=== PATIENT | female | born 1970 | race Caucasian/White ===

== ENCOUNTER 2017-02-14 01:15 | Emergency (ER) | payer OTHER ==
--- NOTE | 2017-02-14 01:48 | PDOC ---
History of Present Illness - General Chief Complaint: Pain Stated Complaint: CHEST PAIN/BLOOD PRESSURE PROBLEM Time Seen by Provider: 02/14/17 01:30 History Source: Patient, Significant Other - History of Present Illness Initial Comments: 02/14/17 01:43 46 year old female c/o chest pain and left arm pain since 11 pm with mild nausea. + pleurisy. patient took 2 baby aspirin and 2.5 mg amlodipine. denies recent travel, OCP use, History of hyperlipidemia not on meds. Presenting Symptoms: Chest Pain Timing/Duration: reports: constant Severity/Quality: reports: moderate Location: reports: substernal, back. denies: central, epigastric, shoulder, abdomen, other Chest Pain Radiation: reports: arms (left arm) Activities at Onset: reports: none Prior Chest Pain/Cardiac Workup: reports: No prior chest pain, No prior cardiac workup Modifying Factors: worse with: antacids, breathing, coughing, defecating, eating , exercise, lying down, morphine, movement, nitroglycerin, oxygen, palpation, rest, other Aspirin Received prior to arrival (Core Measure): Yes: 81 mg x 2 Associated Symptoms: Yes: Nausea. No: Denies symptoms, Abdominal pain, Back Pain, Cough, Chest Pain/pressure, Diaphoresis, Dizziness, Edema, Fatigue, Fever/ chills, Headache, Heartburn, Loss of Appetite, Palpitations, Rash, Shortness of Breath, Swelling/lump in chest, Syncope, Vomiting, Weakness Past History - Past Medical History Allergies/Adverse Reactions: Allergies Allergy/AdvReac Type Severity Reaction Status Date / Time tetracycline [Tetracycline] Allergy Verified 02/14/17 01:34 Home Medications: Ambulatory Orders NK [No Known Home Medication] 02/14/17 Hypercholesterolemia: Yes Other medical history: Pt denies - Surgical History Appendectomy: Yes - Suicide/Smoking/Psychosocial Hx Smoking Status: No Smoking History: Never smoked Have you smoked in the past 12 months: No Number of Cigarettes Smoked Daily: 0 Information on smoking cessation initiated: No Hx Alcohol Use: No Drug/Substance Use Hx: No Substance Use Type: None Review of Systems - Review of Systems Able to Perform ROS?: Yes Is the patient limited Thai proficient: No Constitutional: No: Symptoms Reported, See HPI, Chills, Diaphoresis, Fever, Loss of Appetite, Malaise, Night Sweats, Weakness, Weight Stable, Unintentional Wgt. Loss, Unexplained wgt Loss, Other Cardiac (ROS): Yes: Chest Pain, Other (pain radiating to back and left arm.) ABD/GI: Yes: Nausea. No: Symptoms Reported, See HPI, Abdominal Distended, Abd. Pain w/ defecation, Blood Streaked Bowels, Constipated, Diarrhea, Difficulty Swallowing, Poor Appetite, Poor Fluid Intake, Rectal Bleeding, Vomiting, Indigestion, Abdominal cramping, Tarry Stools, Other *Physical Exam - Vital Signs Last Vital Signs Temp Pulse Resp BP Pulse Ox 97.5 F L 68 18 149/90 99 02/14/17 01:35 02/14/17 04:15 02/14/17 04:15 02/14/17 04:15 02/14/17 04:15 - Physical Exam General Appearance: Yes: Appropriately Dressed Respiratory/Chest: positive: Lungs Clear, Normal Breath Sounds Cardiovascular: positive: Regular Rhythm, Regular Rate, S1, S2. negative: Edema , JVD, Murmur, Bradycardia, Tachycardia, Diastolic Murmur, Systolic Murmur, Gallop/S3, Gallop/S4, Irregularly Irregular, Irregular, Other Gastrointestinal/Abdominal: positive: Normal Bowel Sounds, Soft. negative: Tender Musculoskeletal: positive: Normal Inspection Extremity: positive: Normal Capillary Refill, Normal Inspection, Normal Range of Motion Integumentary: positive: Normal Color, Dry, Warm Neurologic: positive: Fully Oriented, Alert, Normal Mood/Affect Heart Score/ECG Review - History History: Slightly suspicious - Electrocardiogram EKG: Normal - Age Age: 45-65 - Risk Factors Risk Factors Heart Score: Yes Hx Hypercholesterolemia Based on the list above the patient has:: 1-2 risk factors - Troponin Troponin: </= normal limit - Score Heart Score - Total: 2 #2 ECG reviewed & interpreted by me at: 06:19 General ECG Interpretation: Sinus Rhythm Compared to previous ECG there are: No significant change 02/14/17 06:19 60bpm - ECG Intrepretation Rhythm: Regular Rhythm Comment:: 02/14/17 04:51 78: NSR ED Treatment Course - LABORATORY CBC & Chemistry Diagram: 02/14/17 01:52 02/14/17 01:52 - ADDITIONAL ORDERS Additional order review: Laboratory Results 02/14/17 02/14/17 02/14/17 02:00 01:52 01:52 PT with INR 11.10 INR 1.01 D-Dimer < 200 Sodium 142 Potassium 4.0 Chloride 106 Carbon Dioxide 25 Anion Gap 11 BUN 12 Creatinine 0.7 Creat Clearance w eGFR > 60 Random Glucose 126 H Calcium 8.8 Magnesium 2.2 Total Bilirubin 0.2 AST 32 ALT 51 Alkaline Phosphatase 98 Creatine Kinase 167 Creatine Kinase Index 0.7 CK-MB (CK-2) 1.222 Troponin I < 0.02 Total Protein 7.4 Albumin 3.8 Urine Color Colorless Urine Appearance Clear Urine pH 7.0 Urine Protein Negative Urine Glucose (UA) Negative Urine Ketones Negative Urine Blood Negative Urine Nitrite Negative Urine Bilirubin Negative Urine Urobilinogen Negative Urine RBC 1 Urine WBC 7 Ur Epithelial Cells Rare Urine Bacteria Rare Urine HCG, Qual Negative 02/14/17 01:52 RBC 4.50 MCV 86.2 MCHC 33.9 RDW 14.0 MPV 8.8 Neutrophils % 43.2 Lymphocytes % 43.7 H Monocytes % 7.5 Eosinophils % 4.6 H Basophils % 1.0 - RADIOLOGY Radiology Studies Ordered: Category Date Time Status CHEST PA & LAT [RAD] Stat Radiology 02/14/17 01:53 Taken Chest X-Ray Result: No Infiltrates (official read pending) Progress Note - Progress Note Progress Note: A: chest pain; hypertension P: cbc cmp cardiac enzymes x2 d- dimer ua urine . EKG Medical Decision Making - Medical Decision Making 02/14/17 06:15 patient reports feeling better. b/p improving. advised to follow up with pmd for b/p management. cardiac enzyme # 2 pending. if normal patient to be discharged for further management of care. 02/14/17 06:20 *DC/Admit/Observation/Transfer Diagnosis at time of Disposition: Chest pain in adult - Discharge Dispostion Disposition: HOME - Referrals Referrals: Sanaz Keith [Primary Care Provider] - - Patient Instructions Printed Discharge Instructions: [facility] Diet Additional Instructions: follow up with your doctor as soon as possible. monitor your b/p daily. follow up with your doctor as soon as possible. - Post Discharge Activity Forms/Work/School Notes: Back to Work
[2017-02-14 01:54] VITALS: TEMP 97.5; BMI 30.9
[2017-02-14 02:01] LABS: EOSINOPHIL 4.6 % (0-4.5); MCH 29.2 pg (25.7-33.7); MCHC 33.9 g/dl (32.0-36.0); MEAN CELL VOLUME 86.2 fl (80-96); MEAN PLT VOLUME 8.8 fl (7.5-11.1); NEUTROPHILS 43.2 % (42.8-82.8); PLATELET COUNT 207 K/MM3 (134-434); WHITE BLOOD COUNT 7.3 K/mm3 (4.0-10.0)
[2017-02-14 02:13] LABS: URINE APPEARANCE CLEAR; URINE BILIRUBIN NEGATIVE (NEGATIVE); URINE BLOOD NEGATIVE (NEGATIVE); URINE COLOR COLORLESS; URINE GLUCOSE (UA) NEGATIVE (NEGATIVE); URINE KETONE NEGATIVE (NEGATIVE); URINE NITRITE NEGATIVE (NEGATIVE); URINE PROTEIN NEGATIVE (NEGATIVE); URINE UROBILINOGEN NEGATIVE mg/dL (0.2-1.0)
[2017-02-14 02:17] LABS: URINE LEUK ESTERASE 1+ (NEGATIVE)
[2017-02-14 02:18] LABS: URINE BACTERIA RARE /hpf (NONE SEEN); URINE RBC 1 /hpf (0-3); URINE WBC 7 /hpf (3-5)
[2017-02-14 02:24] LABS: ALBUMIN 3.8 g/dl (3.4-5.0); ANION GAP 11 (8-16); BILIRUBIN,TOTAL 0.2 mg/dL (0.2-1.0); CALCIUM 8.8 mg/dL (8.5-10.1); CO2 25 mmol/L (21-32); CREATININE 0.7 mg/dL (0.55-1.02); GLUCOSE,RANDOM 126 mg/dL (74-106); MAGNESIUM 2.2 mg/dL (1.8-2.4); SGOT/AST 32 U/L (15-37); SGPT/ALT 51 U/L (12-78); TOT PROT 7.4 g/dl (6.4-8.2)
[2017-02-14 02:27] LABS: ALK PHOS 98 U/L (45-117); CPK 167 IU/L (26-192); TROPONIN I < 0.02 ng/ml (0.00-0.05)
[2017-02-14 02:28] LABS: INR 1.01 (0.82-1.09)
--- NOTE | 2017-02-14 02:56 | PDOC ---
*Physical Exam - Vital Signs Last Vital Signs Temp Pulse Resp BP Pulse Ox 97.5 F L 75 20 166/107 100 02/14/17 01:35 02/14/17 01:35 02/14/17 01:35 02/14/17 01:35 02/14/17 01:35 ED Treatment Course - LABORATORY CBC & Chemistry Diagram: 02/14/17 01:52 02/14/17 01:52 - ADDITIONAL ORDERS Additional order review: Laboratory Results 02/14/17 02/14/17 02/14/17 02:00 01:52 01:52 PT with INR 11.10 INR 1.01 Sodium 142 Potassium 4.0 Chloride 106 Carbon Dioxide 25 Anion Gap 11 BUN 12 Creatinine 0.7 Creat Clearance w eGFR > 60 Random Glucose 126 H Calcium 8.8 Magnesium 2.2 Total Bilirubin 0.2 AST 32 ALT 51 Alkaline Phosphatase 98 Creatine Kinase 167 Troponin I < 0.02 Total Protein 7.4 Albumin 3.8 Urine Color Colorless Urine Appearance Clear Urine pH 7.0 Urine Protein Negative Urine Glucose (UA) Negative Urine Ketones Negative Urine Blood Negative Urine Nitrite Negative Urine Bilirubin Negative Urine Urobilinogen Negative Urine RBC 1 Urine WBC 7 Ur Epithelial Cells Rare Urine Bacteria Rare Urine HCG, Qual Negative 02/14/17 01:52 RBC 4.50 MCV 86.2 MCHC 33.9 RDW 14.0 MPV 8.8 Neutrophils % 43.2 Lymphocytes % 43.7 H Monocytes % 7.5 Eosinophils % 4.6 H Basophils % 1.0 Medical Decision Making - Medical Decision Making 02/14/17 02:56 agree with care from [facility] *DC/Admit/Observation/Transfer Diagnosis at time of Disposition: Chest pain in adult - Referrals Referrals: Sanaz Keith [Primary Care Provider] - - Patient Instructions - Post Discharge Activity
[2017-02-14 03:02] LABS: D-DIMER < 200 ng/ml (<200-235)
[2017-02-14 04:16] VITALS: BP 149/90; PULSE 68
[2017-02-14 06:34] LABS: CPK 167 IU/L (26-192); TROPONIN I < 0.02 ng/ml (0.00-0.05)
--- NOTE | 2017-02-14 10:24 | EKG ---
Test Reason : Blood Pressure : / mmHG Vent. Rate : 078 BPM Atrial Rate : 078 BPM P-R Int : 164 ms QRS Dur : 078 ms QT Int : 382 ms P-R-T Axes : 014 051 032 degrees QTc Int : 435 ms NORMAL SINUS RHYTHM NORMAL ECG WHEN COMPARED WITH ECG OF 13-AUG-2013 00:27, NO SIGNIFICANT CHANGE WAS FOUND Confirmed by EDY BARRY MD ([id number]) on 02/14/2017 10:23:50 AM Referred By: Confirmed By:EDY BARRY MD
--- NOTE | 2017-02-14 13:03 | EKG ---
Test Reason : Blood Pressure : / mmHG Vent. Rate : 060 BPM Atrial Rate : 060 BPM P-R Int : 180 ms QRS Dur : 078 ms QT Int : 456 ms P-R-T Axes : 018 053 048 degrees QTc Int : 456 ms NORMAL SINUS RHYTHM WITH SINUS ARRHYTHMIA NORMAL ECG WHEN COMPARED WITH ECG OF 14-FEB-2017 01:25, NO SIGNIFICANT CHANGE WAS FOUND Confirmed by EDY BARRY MD ([id number]) on 02/14/2017 1:03:40 PM Referred By: Confirmed By:EDY BARRY MD
== END 2017-02-14 07:09 | disposition home or self-care (01) ==
LOC: JER 01:15
DX: R07.9 Chest pain, unspecified (principal); E78.00 Pure hypercholesterolemia, unspecified
CPT/HCPCS: 36415; 71020-TC; 80053; 81003; 81015; 82553; 83735; 84484; 84703; 85025; 85379; 85610; 93005; 93010; 99283-25

== ENCOUNTER 2021-04-10 17:38 | Emergency (ER) | payer SELFPAY ==
[2021-04-10 17:46] VITALS: TEMP 97; BMI 33.5
[2021-04-10 18:52] VITALS: BP 149/97; PULSE 67
[2021-04-10 18:54] LABS: BASO % 0.8 % (0-2.0); EOS % 0.7 % (0-4.5); EPI CELLS 32 /uL (0-25.1); HEMATOCRIT 40.6 % (32.4-45.2); HEMOGLOBIN 13.8 GM/dL (10.7-15.3); HYALINE CASTS 0 /uL (0-3.1); LYMPH % 27.9 % (8-40); MCH 28.9 pg (25.7-33.7); MCHC 33.9 g/dl (32.0-36.0); MEAN CELL VOLUME 85.4 fl (80-96); MEAN PLT VOLUME 8.5 fl (7.5-11.1); MONO % 7.3 % (3.8-10.2); NEUT % 63.3 % (42.8-82.8); PH,URINE 7.5 (5.0-8.0); PLATELET COUNT 235 10^3/uL (134-434); RBC 4.75 M/mm3 (3.60-5.2); RDW 14.4 % (11.6-15.6); URINE APPEARANCE CLEAR; URINE BACTERIA 32 /uL (0-1359); URINE BILIRUBIN NEGATIVE (NEGATIVE); URINE COLOR YELLOW; URINE GLUCOSE (UA) NEGATIVE (NEGATIVE); URINE KETONE NEGATIVE (NEGATIVE); URINE LEUK ESTERASE 2+ (NEGATIVE); URINE NITRITE NEGATIVE (NEGATIVE); URINE PROTEIN NEGATIVE (NEGATIVE); URINE RBC 4 /uL (0-23.9); URINE UROBILINOGEN 0.2 mg/dL (0.2-1.0); URINE WBC 36 /uL (0-25.8); WHITE BLOOD COUNT 7.4 K/mm3 (4.0-10.0)
[2021-04-10 19:12] LABS: CHLORIDE 107 mmol/L (98-107); SODIUM 139 mmol/L (136-145)
[2021-04-10 19:15] LABS: ALBUMIN 3.9 g/dl (3.4-5.0); BLOOD UREA NITROGEN 11.6 mg/dL (7-18); CO2 29 mmol/L (21-32); GLUCOSE,RANDOM 129 mg/dL (74-106)
[2021-04-10 19:18] LABS: CREATININE 0.8 mg/dL (0.55-1.3); SGOT/AST 46 U/L (15-37); SGPT/ALT 36 U/L (13-61)
[2021-04-10 19:19] LABS: TOT PROT 8.4 g/dl (6.4-8.2)
[2021-04-10 19:20] LABS: ALK PHOS 100 U/L (45-117)
[2021-04-10 20:25] LABS: ANION GAP 3 MMOL/L (8-16); BILIRUBIN,TOTAL 0.4 mg/dL (0.2-1)
[2021-04-10 21:17] LABS: CHLORIDE 109 mmol/L (98-107); SODIUM 142 mmol/L (136-145)
[2021-04-10 21:20] LABS: BLOOD UREA NITROGEN 11.2 mg/dL (7-18); CALCIUM 9.1 mg/dL (8.5-10.1); GLUCOSE,RANDOM 97 mg/dL (74-106)
[2021-04-10 21:23] LABS: ANION GAP 5 MMOL/L (8-16); CO2 28 mmol/L (21-32)
[2021-04-10 21:24] LABS: CREATININE 0.8 mg/dL (0.55-1.3)
== END 2021-04-10 23:35 | disposition home or self-care (01) ==
LOC: JER 17:38
DX: R00.2 Palpitations (principal)
CPT/HCPCS: 36415; 71046-TC-FY; 80048; 80053; 81003; 82550; 82553; 84443; 84484; 85025; 87086; 93005; 93010; 99284-25

== ENCOUNTER 2022-05-23 12:30 | Emergency (ER) | payer OTHER ==
[2022-05-23 12:39] VITALS: BP 182/93; PULSE 67; RESP 18; TEMP 98; BMI 32.4
[2022-05-23] MEDS ORDERED: IBUPROFEN 600 MG TABLET (FP) PO ONE ×2 (13:25→13:58)
[2022-05-23] MEDS ORDERED: ACETAMINOPHEN 500 MG TABLET (FP) PO ONE (13:25)
[2022-05-23] MEDS ORDERED: LIDOCAINE 5% TOPICAL PATCH TP ONE (13:26)
[2022-05-23] MEDS ORDERED: LIDOCAINE 5% TOPICAL PATCH ONE (13:58)
[2022-05-23] MEDS ORDERED: ACETAMINOPHEN 500 MG TABLET (FP) ONE (13:58)
[2022-05-23] MEDS ORDERED: LIDOCAINE PATCH REMOVAL MC SCH (22:00)
== END 2022-05-23 19:32 | disposition home or self-care (01) ==
LOC: JERFT 12:30
DX: M25.562 Pain in left knee (principal); W01.0XXA Fall on same level from slipping, tripping and stumbling without subsequent striking against object, initial encounter
CPT/HCPCS: 73562-TC-LT-FY; 73590-TC-LT-FY; 99284-25

== ENCOUNTER 2023-01-27 02:14 | Emergency (ER) | payer OTHER ==
[2023-01-27 02:20] VITALS: TEMP 98.9; BMI 29.8
[2023-01-27 02:22] VITALS: RESP 18
[2023-01-27] MEDS ORDERED: ACETAMINOPHEN 1000 MG/100 ML BAG IVPB ONE ×2 (03:14→04:10)
[2023-01-27] MEDS ORDERED: ACETAMINOPHEN INJECTION 100 ML IVPB ONE (03:17)
[2023-01-27 03:43] LABS: BASO % 0.7 % (0-2.0); EOS % 2.5 % (0-4.5); HEMATOCRIT 39.5 % (32.4-45.2); HEMOGLOBIN 13.6 GM/dL (10.7-15.3); MCH 29.2 pg (25.7-33.7); MCHC 34.4 g/dl (32.0-36.0); MEAN PLT VOLUME 8.4 fl (7.5-11.1); MONO % 6.8 % (3.8-10.2); PLATELET COUNT 235 10^3/uL (134-434); RBC 4.65 M/mm3 (3.60-5.2); WHITE BLOOD COUNT 7.1 K/mm3 (4.0-10.0)
[2023-01-27 03:44] LABS: URINE APPEARANCE CLEAR; URINE BILIRUBIN NEGATIVE (NEGATIVE); URINE COLOR YELLOW; URINE GLUCOSE (UA) NEGATIVE (NEGATIVE); URINE KETONE NEGATIVE (NEGATIVE); URINE LEUK ESTERASE NEGATIVE (NEGATIVE); URINE NITRITE NEGATIVE (NEGATIVE); URINE PROTEIN NEGATIVE (NEGATIVE); URINE UROBILINOGEN 0.2 mg/dL (0.2-1.0)
[2023-01-27 04:04] LABS: POTASSIUM 3.7 mmol/L (3.5-5.1)
[2023-01-27 04:06] LABS: CALCIUM 8.8 mg/dL (8.5-10.1)
[2023-01-27 04:07] LABS: BLOOD UREA NITROGEN 11.3 mg/dL (7-18)
[2023-01-27 04:10] LABS: CREATININE 0.7 mg/dL (0.55-1.3)
[2023-01-27 04:11] LABS: TOT PROT 7.8 g/dl (6.4-8.2)
[2023-01-27 04:12] LABS: BILIRUBIN,TOTAL 0.3 mg/dL (0.2-1)
[2023-01-27 04:26] VITALS: BP 131/86; PULSE 63
== END 2023-01-27 04:47 | disposition admitted as inpatient to this hospital (09) ==
LOC: JER 02:14
PROC: 3E033NZ Introduction of Analgesics, Hypnotics, Sedatives into Peripheral Vein, Percutaneous Approach (ICD-10-PCS; principal; 2023-01-27)
DX: I10 Essential (primary) hypertension (principal); Z20.822 Contact with and (suspected) exposure to COVID-19
CPT/HCPCS: 0241U-QW; 36415; 71046-TC-FY; 80053; 81003; 84484; 85025; 87086; 93005; 93010; 99285-25

== ENCOUNTER 2023-02-19 20:17 | Emergency (ER) | payer OTHER ==
[2023-02-19 20:45] VITALS: TEMP 98.1; BMI 33.3
[2023-02-19 22:26] VITALS: BP 144/89; PULSE 78; RESP 16
[2023-02-19 23:22] LABS: BASO % 0.7 % (0-2.0); EOS % 1.3 % (0-4.5); HEMATOCRIT 40.3 % (32.4-45.2); HEMOGLOBIN 13.7 GM/dL (10.7-15.3); LYMPH % 33.8 % (8-40); MCH 28.8 pg (25.7-33.7); MEAN CELL VOLUME 84.6 fl (80-96); MEAN PLT VOLUME 8.1 fl (7.5-11.1); MONO % 6.7 % (3.8-10.2); NEUT % 57.5 % (42.8-82.8); PLATELET COUNT 232 10^3/uL (134-434); RBC 4.77 M/mm3 (3.60-5.2); RDW 14.4 % (11.6-15.6); WHITE BLOOD COUNT 8.9 K/mm3 (4.0-10.0)
[2023-02-19 23:49] LABS: POTASSIUM 4.3 mmol/L (3.5-5.1)
[2023-02-19 23:51] LABS: ALBUMIN 4.1 g/dl (3.4-5.0); BLOOD UREA NITROGEN 11.2 mg/dL (7-18); CALCIUM 8.9 mg/dL (8.5-10.1)
[2023-02-19 23:54] LABS: CREATININE 0.7 mg/dL (0.55-1.3)
[2023-02-19 23:56] LABS: BILIRUBIN,TOTAL 0.4 mg/dL (0.2-1); TOT PROT 7.8 g/dl (6.4-8.2)
== END 2023-02-20 00:27 | disposition home or self-care (01) ==
LOC: JER 20:17
DX: I10 Essential (primary) hypertension (principal); R42 Dizziness and giddiness; R07.89 Other chest pain; H53.8 Other visual disturbances
CPT/HCPCS: 36415; 80053; 84484; 85025; 93005; 93010; 99284-25

== ENCOUNTER 2023-03-02 20:10 | Emergency (ER) | payer OTHER ==
[2023-03-02 21:09] VITALS: RESP 18; TEMP 98.8; BMI 32.2
[2023-03-02] MEDS ORDERED: ACETAMINOPHEN 1000 MG/100 ML BAG IVPB ONE (21:33)
[2023-03-02] MEDS ORDERED: LIDOCAINE 5% TOPICAL PATCH TP ONE (21:33)
[2023-03-02 21:44] LABS: BASO % 0.5 % (0-2.0); EOS % 0.5 % (0-4.5); HEMATOCRIT 40.9 % (32.4-45.2); HEMOGLOBIN 13.8 GM/dL (10.7-15.3); LYMPH % 23.1 % (8-40); MCH 28.5 pg (25.7-33.7); MCHC 33.8 g/dl (32.0-36.0); MEAN CELL VOLUME 84.3 fl (80-96); MEAN PLT VOLUME 8.5 fl (7.5-11.1); MONO % 5.6 % (3.8-10.2); NEUT % 70.3 % (42.8-82.8); PLATELET COUNT 269 10^3/uL (134-434); RBC 4.85 M/mm3 (3.60-5.2); RDW 14.2 % (11.6-15.6); WHITE BLOOD COUNT 8.5 K/mm3 (4.0-10.0)
[2023-03-02 21:47] LABS: EPI CELLS 11 /uL (0-25.1); HYALINE CASTS 0 /uL (0-3.1); PH,URINE 6.5 (5.0-8.0); URINE APPEARANCE CLEAR; URINE BACTERIA 26 /uL (0-1359); URINE BILIRUBIN NEGATIVE (NEGATIVE); URINE COLOR YELLOW; URINE GLUCOSE (UA) NEGATIVE (NEGATIVE); URINE KETONE NEGATIVE (NEGATIVE); URINE LEUK ESTERASE 2+ (NEGATIVE); URINE NITRITE NEGATIVE (NEGATIVE); URINE PROTEIN NEGATIVE (NEGATIVE); URINE RBC 4 /uL (0-23.9); URINE UROBILINOGEN 0.2 mg/dL (0.2-1.0); URINE WBC 113 /uL (0-25.8)
[2023-03-02] MEDS ORDERED: ACETAMINOPHEN INJECTION 100 ML IVPB ONE (21:47)
[2023-03-02] MEDS ORDERED: LIDOCAINE 4% PATCH TP ONE (21:47)
[2023-03-02 21:50] LABS: INR 1.02 (0.83-1.09); PROTHROMBIN TIME (PATIENT) 11.8 SEC (9.7-13.0)
[2023-03-02 21:52] LABS: ACTIVATED PTT 38.7 SECONDS (25.2-36.5)
[2023-03-02] MEDS ORDERED: LIDOCAINE PATCH REMOVAL MC ONE (22:00)
[2023-03-02 22:12] LABS: POTASSIUM 4.1 mmol/L (3.5-5.1)
[2023-03-02 22:14] LABS: CALCIUM 9.3 mg/dL (8.5-10.1)
[2023-03-02 22:15] LABS: ALBUMIN 4.3 g/dl (3.4-5.0); BLOOD UREA NITROGEN 16.7 mg/dL (7-18); MAGNESIUM 2.3 mg/dL (1.8-2.4)
[2023-03-02 22:18] LABS: CREATININE 0.8 mg/dL (0.55-1.3)
[2023-03-02 22:19] LABS: BILIRUBIN,TOTAL 0.3 mg/dL (0.2-1); TOT PROT 8.3 g/dl (6.4-8.2)
[2023-03-02] MEDS ORDERED: CEPHALEXIN MONOHYDRATE 500 MG CAPSULE (UD) PO ONE (22:38)
[2023-03-02] MEDS ORDERED: CEPHALEXIN MONOHYDRATE 500 MG CAPSULE (UD) ONE ×2 (23:11→23:24)
[2023-03-02] MEDS ORDERED: PHENAZOPYRIDINE HCL 100 MG TABLET (FP) PO ONE (23:52)
[2023-03-03] MEDS ORDERED: PHENAZOPYRIDINE HCL 100 MG TABLET (FP) ONE (00:30)
[2023-03-03 01:29] VITALS: BP 122/67; PULSE 98
[2023-03-03] MEDS ORDERED: LIDOCAINE PATCH REMOVAL MC SCH ×2 (09:00→11:23)
== END 2023-03-03 01:29 | disposition home or self-care (01) ==
LOC: JER 20:10
PROC: 3E033NZ Introduction of Analgesics, Hypnotics, Sedatives into Peripheral Vein, Percutaneous Approach (ICD-10-PCS; principal; 2023-03-02)
DX: R07.9 Chest pain, unspecified (principal); M54.50 Low back pain, unspecified; R00.2 Palpitations; I10 Essential (primary) hypertension; R30.0 Dysuria; R35.0 Frequency of micturition; N39.0 Urinary tract infection, site not specified; Z20.822 Contact with and (suspected) exposure to COVID-19
CPT/HCPCS: 0241U-QW; 36415; 71045-TC-FY; 80053; 81003; 83735; 84484; 85025; 85610; 85730; 87086; 93005; 93010; 99285-25

== ENCOUNTER 2023-12-22 07:31 | Emergency (ER) | payer OTHER ==
[2023-12-22 07:39] VITALS: BP 146/78; PULSE 67; RESP 18; TEMP 98.6; BMI 30.5
[2023-12-22 08:19] LABS: BASO % 0.7 % (0-2.0); EOS % 1.8 % (0-4.5); HEMATOCRIT 40.5 % (32.4-45.2); HEMOGLOBIN 13.7 GM/dL (10.7-15.3); LYMPH % 42.3 % (8-40); MCH 29.3 pg (25.7-33.7); MCHC 33.9 g/dl (32.0-36.0); MEAN CELL VOLUME 86.6 fl (80-96); MEAN PLT VOLUME 8.4 fl (7.5-11.1); NEUT % 48.2 % (42.8-82.8); PLATELET COUNT 246 10^3/uL (134-434); RBC 4.67 M/mm3 (3.60-5.2); RDW 14.3 % (11.6-15.6); WHITE BLOOD COUNT 6.6 K/mm3 (4.0-10.0)
[2023-12-22] MEDS ORDERED: ACETAMINOPHEN 500 MG TABLET (FP) ONE (08:19)
[2023-12-22] MEDS: ACETAMINOPHEN 500 MG TABLET (FP) PO ONE (08:27)
[2023-12-22 08:59] LABS: ANION GAP 7 mmol/L (4-13); BLOOD UREA NITROGEN 9.5 mg/dL (7-18); CHLORIDE 109 mmol/L (98-107); CO2 26 mmol/L (21-32); GLUCOSE,RANDOM 115 mg/dL (74-106); POTASSIUM 4.8 mmol/L (3.5-5.1); SODIUM 141 mmol/L (136-145)
[2023-12-22 09:02] LABS: BILIRUBIN,TOTAL 0.4 mg/dL (0.2-1); CREATININE 0.6 mg/dL (0.55-1.3); SGOT/AST 19 U/L (15-37); SGPT/ALT 34 U/L (13-61); TOT PROT 7.7 g/dl (6.4-8.2)
[2023-12-22 09:07] LABS: ALK PHOS 125 U/L (45-117)
[2023-12-22 09:07] LABS: PH,URINE 6.5 (5.0-8.0); URINE APPEARANCE CLEAR; URINE BILIRUBIN NEGATIVE (NEGATIVE); URINE COLOR YELLOW; URINE GLUCOSE (UA) NEGATIVE (NEGATIVE); URINE KETONE NEGATIVE (NEGATIVE); URINE LEUK ESTERASE NEGATIVE (NEGATIVE); URINE NITRITE NEGATIVE (NEGATIVE); URINE PROTEIN NEGATIVE (NEGATIVE); URINE UROBILINOGEN 0.2 mg/dL (0.2-1.0)
[2023-12-22 12:52] LABS: HIV INTERPRETATION NEGATIVE (NEGATIVE)
== END 2023-12-22 14:57 | disposition home or self-care (01) ==
LOC: JER 07:31
DX: R10.84 Generalized abdominal pain (principal); K57.90 Diverticulosis of intestine, part unspecified, without perforation or abscess without bleeding; R11.0 Nausea; R30.0 Dysuria; K59.00 Constipation, unspecified
CPT/HCPCS: 36415; 74177-TC; 80053; 81003; 82550; 82553; 83690; 84484; 84703; 85025; 86803; 87086; 87389; 93005; 93010; 99285-25; Q9967

== ENCOUNTER 2024-02-15 19:35 | Emergency (ER) | payer OTHER ==
[2024-02-15 19:43] VITALS: BP 170/86; PULSE 98; RESP 18; TEMP 99.1; BMI 30.7
[2024-02-15 20:38] LABS: BASO % 0.7 % (0-2.0); EOS % 1.6 % (0-4.5); HEMATOCRIT 41.3 % (32.4-45.2); HEMOGLOBIN 13.6 GM/dL (10.7-15.3); LYMPH % 32.9 % (8-40); MCH 28.6 pg (25.7-33.7); MEAN CELL VOLUME 86.6 fl (80-96); MEAN PLT VOLUME 8.4 fl (7.5-11.1); MONO % 6.7 % (3.8-10.2); NEUT % 58.1 % (42.8-82.8); PLATELET COUNT 220 10^3/uL (134-434); RBC 4.77 M/mm3 (3.60-5.2); WHITE BLOOD COUNT 6.9 K/mm3 (4.0-10.0)
[2024-02-15 21:00] LABS: POTASSIUM 3.6 mmol/L (3.5-5.1)
[2024-02-15 21:03] LABS: BLOOD UREA NITROGEN 13.7 mg/dL (7-18); CALCIUM 9.3 mg/dL (8.5-10.1)
[2024-02-15 21:04] LABS: ALBUMIN 4.1 g/dl (3.4-5.0)
[2024-02-15 21:07] LABS: CREATININE 0.5 mg/dL (0.55-1.3)
[2024-02-15 21:08] LABS: BILIRUBIN,TOTAL 0.4 mg/dL (0.2-1); TOT PROT 7.7 g/dl (6.4-8.2)
== END 2024-02-15 22:48 | disposition home or self-care (01) ==
LOC: JER 19:35
DX: I10 Essential (primary) hypertension (principal); H93.8X3 Other specified disorders of ear, bilateral
CPT/HCPCS: 36415; 80053; 84484; 85025; 93005; 93010; 99284-25

== ENCOUNTER 2024-02-17 13:59 | Emergency (ER) | payer OTHER ==
[2024-02-17 14:08] VITALS: BMI 30.5
[2024-02-17 15:12] LABS: BASO % 0.6 % (0-2.0); EOS % 0.9 % (0-4.5); HEMATOCRIT 39.2 % (32.4-45.2); HEMOGLOBIN 13.4 GM/dL (10.7-15.3); LYMPH % 22.5 % (8-40); MCH 29.5 pg (25.7-33.7); MCHC 34.3 g/dl (32.0-36.0); MEAN PLT VOLUME 8.2 fl (7.5-11.1); MONO % 5.8 % (3.8-10.2); NEUT % 70.2 % (42.8-82.8); PLATELET COUNT 229 10^3/uL (134-434); RBC 4.55 M/mm3 (3.60-5.2); WHITE BLOOD COUNT 6.2 K/mm3 (4.0-10.0)
[2024-02-17 15:17] LABS: INR 0.93 (0.83-1.09); PROTHROMBIN TIME (PATIENT) 10.7 SEC (9.7-13.0)
[2024-02-17 15:20] LABS: ACTIVATED PTT 36.8 SECONDS (25.2-36.5)
[2024-02-17 15:32] LABS: PH,URINE 6.5 (5.0-8.0); URINE APPEARANCE CLEAR; URINE BILIRUBIN NEGATIVE (NEGATIVE); URINE COLOR YELLOW; URINE GLUCOSE (UA) NEGATIVE (NEGATIVE); URINE KETONE NEGATIVE (NEGATIVE); URINE LEUK ESTERASE NEGATIVE (NEGATIVE); URINE NITRITE NEGATIVE (NEGATIVE); URINE PROTEIN NEGATIVE (NEGATIVE); URINE UROBILINOGEN 0.2 mg/dL (0.2-1.0)
[2024-02-17 15:46] LABS: ALBUMIN 3.8 g/dl (3.4-5.0); BLOOD UREA NITROGEN 18.6 mg/dL (7-18)
[2024-02-17 15:49] LABS: CREATININE 0.7 mg/dL (0.55-1.3)
[2024-02-17 15:51] LABS: TOT PROT 7.1 g/dl (6.4-8.2)
[2024-02-17 15:59] LABS: BILIRUBIN,TOTAL 0.3 mg/dL (0.2-1)
[2024-02-17] MEDS: LACTATED RINGERS SOLUTION 1000 ML INFUS.BAG IV ONE (17:04)
[2024-02-17 17:28] VITALS: BP 110/66; PULSE 69; RESP 18; TEMP 97.9
== END 2024-02-17 19:09 | disposition home or self-care (01) ==
LOC: JER 13:59
DX: R07.89 Other chest pain (principal); R00.2 Palpitations; R42 Dizziness and giddiness; Z20.822 Contact with and (suspected) exposure to COVID-19
CPT/HCPCS: 0241U-QW; 36415; 80053; 81003; 84439; 84443; 84484; 85025; 85610; 85730; 93005; 93010; 99284-25

== ENCOUNTER 2024-02-22 22:01 | Emergency (ER) | payer OTHER ==
[2024-02-22 22:28] VITALS: BP 148/84; PULSE 89; RESP 18; TEMP 98.4
[2024-02-23 01:26] LABS: POTASSIUM 3.9 mmol/L (3.5-5.1)
[2024-02-23 01:28] LABS: CALCIUM 9.3 mg/dL (8.5-10.1)
[2024-02-23 01:29] LABS: ALBUMIN 3.9 g/dl (3.4-5.0); BLOOD UREA NITROGEN 12.3 mg/dL (7-18); MAGNESIUM 2.4 mg/dL (1.8-2.4)
[2024-02-23 01:32] LABS: CREATININE 0.5 mg/dL (0.55-1.3)
[2024-02-23 01:34] LABS: BILIRUBIN,TOTAL 0.4 mg/dL (0.2-1); TOT PROT 7.5 g/dl (6.4-8.2)
[2024-02-23 02:26] LABS: BASO % 0.5 % (0-2.0); EOS % 0.7 % (0-4.5); HEMATOCRIT 36.8 % (32.4-45.2); HEMOGLOBIN 12.5 GM/dL (10.7-15.3); LYMPH % 29.8 % (8-40); MCH 29.4 pg (25.7-33.7); MCHC 34.1 g/dl (32.0-36.0); MEAN CELL VOLUME 86.2 fl (80-96); MEAN PLT VOLUME 8.7 fl (7.5-11.1); MONO % 6.3 % (3.8-10.2); NEUT % 62.7 % (42.8-82.8); PLATELET COUNT 221 10^3/uL (134-434); RBC 4.26 M/mm3 (3.60-5.2); WHITE BLOOD COUNT 6.9 K/mm3 (4.0-10.0)
[2024-02-23] MEDS ORDERED: IBUPROFEN 400 MG TABLET (FP) PO ONE (03:19)
[2024-02-23] MEDS ORDERED: ACETAMINOPHEN 325 MG TABLET (FP) ONE (03:19)
[2024-02-23] MEDS: IBUPROFEN 400 MG TABLET (FP) PO ONE (03:24)
[2024-02-23] MEDS: ACETAMINOPHEN 325 MG TABLET (FP) PO ONE (03:25)
== END 2024-02-23 03:25 | disposition home or self-care (01) ==
LOC: JER 22:01
DX: R07.89 Other chest pain (principal); R51.9 Headache, unspecified
CPT/HCPCS: 36415; 71045-TC-FY; 80053; 82550; 82553; 83735; 84484; 85025; 93005; 93010; 99285-25

== ENCOUNTER 2024-05-11 17:04 | Emergency (ER) | payer OTHER ==
[2024-05-11 17:09] VITALS: BMI 29.2
[2024-05-11] MEDS ORDERED: ACETAMINOPHEN INJECTION 100 ML ONE (18:49)
[2024-05-11] MEDS ORDERED: METOCLOPRAMIDE HCL INJECTION 10 MG/2 ML VIAL ONE (18:49)
[2024-05-11] MEDS ORDERED: KETOROLAC TROMETHAMINE 30 MG/1 ML VIAL ONE (18:49)
[2024-05-11] MEDS: METOCLOPRAMIDE HCL INJECTION 10 MG/2 ML VIAL IVPB ONE (18:59)
[2024-05-11] MEDS: SODIUM CHLORIDE 0.9% 500 ML INFUS.BAG IV ONE (18:59)
[2024-05-11] MEDS: ACETAMINOPHEN 1000 MG/100 ML BAG IVPB ONE (18:59)
[2024-05-11] MEDS: KETOROLAC TROMETHAMINE 30 MG/1 ML VIAL IVPUSH ONE (19:00)
[2024-05-12 00:06] VITALS: BP 144/72; PULSE 86; RESP 17; TEMP 97.8
== END 2024-05-12 00:06 | disposition home or self-care (01) ==
LOC: JER 17:04
PROC: 3E033NZ Introduction of Analgesics, Hypnotics, Sedatives into Peripheral Vein, Percutaneous Approach (ICD-10-PCS; principal; 2024-05-11)
PROC: 3E0333Z Introduction of Anti-inflammatory into Peripheral Vein, Percutaneous Approach (ICD-10-PCS; 2024-05-11)
PROC: 3E033GC Introduction of Other Therapeutic Substance into Peripheral Vein, Percutaneous Approach (ICD-10-PCS; 2024-05-11)
DX: R51.9 Headache, unspecified (principal); I10 Essential (primary) hypertension
CPT/HCPCS: 70450-TC; 93005; 93010; 99284-25; J0131